=== PATIENT | female | born 1970 | race Caucasian/White ===

== ENCOUNTER 2018-07-13 14:14 | Emergency (ER) | payer MEDICAID ==
[~2018-07-13] VITALS: Ht 165.1 cm; Wt 76.3 kg
[2018-07-13 15:05] LABS: MEAN CORPUSCULAR HEMOGLOBIN 20.2 pg (27.0-34.8); MEAN CORPUSCULAR HGB CONC 31.7 g/dL (32.4-35.8); MEAN CORPUSCULAR VOLUME 63.7 fL (80-100); MEAN PLATELET VOLUME 8.1 fL (7.4-10.4); PLATELET COUNT 350 x10^3/uL (130-400); RED BLOOD COUNT 4.39 x10^6/uL (3.82-5.3); RED CELL DISTRIBUTION WIDTH 20.3 % (9.6-15.2)
[2018-07-13 15:08] LABS: ALBUMIN 3.3 g/dL (3.4-5.0); ANION GAP 5 mmol/L (5-15); CALCIUM 8.4 mg/dL (8.5-10.1); CHLORIDE 109 mmol/L (98-107)
[2018-07-13 15:16] LABS: ALANINE AMINOTRANSFERASE 15 U/L (12-78); ALKALINE PHOSPHATASE 49 U/L (45-117); BILIRUBIN,TOTAL 0.3 mg/dL (0.2-1.0); CREATININE 0.74 mg/dL (0.55-1.02); TOTAL PROTEIN 7.2 g/dL (6.4-8.2)
[2018-07-13 15:31] LABS: MD YES
[2018-07-13 15:35] LABS: ANISOCYTOSIS 1+; EOS#(MANUAL) 0.86 x10^3/uL (0.0-0.4); EOS% (MANUAL) 10 % (1-7); HYPOCHROMIA 1+; LYMPH#(MANUAL) 1.89 x10^3/uL (1-3.4); LYMPHS% (MANUAL) 22 % (22-44); MICROCYTOSIS 1+; MONOS#(MANUAL) 0.52 x10^3/uL (0.3-2.7); MONOS% (MANUAL) 6 % (2-9); REACTIVE LYMPHS # (MANUAL) 0.09 x10^3/uL (0-0); REACTIVE LYMPHS % (MANUAL) 1 % (0-0); SEG#(MANUAL) 5.25 x10^3/uL (1.8-6.8); SEGS% (MANUAL) 61 % (42-75)
[2018-07-13 15:36] LABS: <PLATELET ESTIMATE> ADEQUATE; <PLT MORPHOLOGY> NORMAL PLT MORPH; POLYCHROMASIA 1+; TARGET CELLS 1+
[2018-07-13 15:41] LABS: MICROSCOPIC INDICATED
[2018-07-13 16:09] LABS: CULTURE INDICATED? YES
[2018-07-13 16:11] VITALS: BP 148/69
== END 2018-07-13 16:35 | disposition home or self-care (01) ==
LOC: ED 15:50
DX: D25.9 Leiomyoma of uterus, unspecified (principal); D50.9 Iron deficiency anemia, unspecified; B37.3 Candidiasis of vulva and vagina
CPT/HCPCS: 36415; 76830; 80053; 81001; 84703; 85025; 87086; 87106; 99285

== ENCOUNTER 2020-01-23 19:30 | Emergency (ER) | payer BC, MEDICAID, OTHER ==
[~2020-01-23] VITALS: Ht 165.1 cm; Wt 80.4 kg
--- NOTE | 2020-01-23 20:11 | NUR ---
Rn to bedside, patient complaining of abdominal pain that feels sharp around right flank. RN educated and encouraged patient to provide urine sample. RN reviewed clean catch urine instructions. Patient verbalized understanding and ambulated to bathroom. Patient returned and RN provided patient with warm blanket and completed assessment. Midlevel provider at bedside now, completing assessment. Awaiting for orders.
[2020-01-23] MEDS ORDERED: KETOROLAC 30 MG/1 ML IVPush ONE (20:30)
[2020-01-23] MEDS ORDERED: ONDANSETRON 2MG/ML, 2ML IVPush ONE (20:30)
[2020-01-23 20:32] LABS: HCG UR SG 1.026 (1.003-1.030); MICROSCOPIC AUTO
[2020-01-23 20:33] LABS: CULTURE INDICATED? YES
[2020-01-23 20:48] LABS: BASOPHILS # (AUTO) 0.06 x10^3/uL (0-0.1); BASOPHILS % (AUTO) 1 % (0-1); EOSINOPHILS # (AUTO) 1.39 x10^3/uL (0-0.4); EOSINOPHILS % (AUTO) 15 % (1-7); LYMPHOCYTES # (AUTO) 2.08 x10^3/uL (1-3.4); LYMPHOCYTES % (AUTO) 22 % (22-44); MD NO; MEAN CORPUSCULAR HGB CONC 33.6 g/dL (32.4-35.8); MEAN CORPUSCULAR VOLUME 86.4 fL (80-100); MEAN PLATELET VOLUME 8.6 fL (7.4-10.4); MONOCYTES # (AUTO) 0.62 x10^3/uL (0.2-0.8); MONOCYTES % (AUTO) 7 % (2-9); NEUTROPHILS % (AUTO) 56 % (42-75); PLATELET COUNT 308 x10^3/uL (130-400); RED BLOOD COUNT 4.99 x10^6/uL (3.82-5.3); RED CELL DISTRIBUTION WIDTH 14.1 % (9.6-15.2)
[2020-01-23 20:55] LABS: ANION GAP 7 mmol/L (5-15); CALCIUM 8.7 mg/dL (8.5-10.1); CHLORIDE 108 mmol/L (98-107); CREATININE 0.76 mg/dL (0.55-1.02)
[2020-01-23 20:56] LABS: ALANINE AMINOTRANSFERASE 15 U/L (12-78); ALBUMIN 3.4 g/dL (3.4-5.0)
[2020-01-23] MEDS ORDERED: CEFTRIAXONE PMX 1GM/50ML 50 ML IV ONE (21:00)
[2020-01-23 21:01] LABS: ALKALINE PHOSPHATASE 54 U/L (45-117); BILIRUBIN,TOTAL 0.3 mg/dL (0.2-1.0); TOTAL PROTEIN 7.2 g/dL (6.4-8.2); TROPONIN I < 0.015 ng/mL (0.000-0.045)
[2020-01-23] MEDS ORDERED: CEFTRIAXONE PMX 1GM/50ML 50 ML ONE (21:38)
[2020-01-23] MEDS ORDERED: ONDANSETRON 2MG/ML, 2ML ONE (21:39)
[2020-01-23] MEDS ORDERED: KETOROLAC 30 MG/1 ML ONE (21:39)
[2020-01-23 21:54] VITALS: BP 168/98
== END 2020-01-23 22:40 | disposition home or self-care (01) ==
LOC: ED 22:03
DX: N10 Acute pyelonephritis (principal); R11.2 Nausea with vomiting, unspecified; R10.10 Upper abdominal pain, unspecified; F17.210 Nicotine dependence, cigarettes, uncomplicated; I10 Essential (primary) hypertension; R94.31 Abnormal electrocardiogram [ECG] [EKG]
CPT/HCPCS: 36415; 76700; 80053; 81001; 81025; 83690; 84484; 85025; 87086; 93005; 96365; 96375; 99285; J0696; J1885; J2405; 87077; 87186

== ENCOUNTER 2020-02-02 09:05 | Emergency (ER) | payer BC ==
[~2020-02-02] VITALS: Ht 165.1 cm; Wt 79.0 kg
[2020-02-02 09:53] LABS: BASOPHILS # (AUTO) 0.03 x10^3/uL (0-0.1); BASOPHILS % (AUTO) 0 % (0-1); EOSINOPHILS # (AUTO) 1.52 x10^3/uL (0-0.4); EOSINOPHILS % (AUTO) 15 % (1-7); LYMPHOCYTES # (AUTO) 1.09 x10^3/uL (1-3.4); LYMPHOCYTES % (AUTO) 11 % (22-44); MD NO; MEAN CORPUSCULAR HEMOGLOBIN 29.3 pg (27.0-34.8); MEAN CORPUSCULAR HGB CONC 33.5 g/dL (32.4-35.8); MEAN CORPUSCULAR VOLUME 87.6 fL (80-100); MEAN PLATELET VOLUME 8.4 fL (7.4-10.4); MONOCYTES # (AUTO) 0.63 x10^3/uL (0.2-0.8); MONOCYTES % (AUTO) 6 % (2-9); NEUTROPHILS # (AUTO) 6.81 x10^3/uL (1.8-6.8); NEUTROPHILS % (AUTO) 68 % (42-75); PLATELET COUNT 293 x10^3/uL (130-400); RED CELL DISTRIBUTION WIDTH 14.3 % (9.6-15.2)
[2020-02-02 10:05] LABS: ALBUMIN 3.4 g/dL (3.4-5.0); ANION GAP 5 mmol/L (5-15); CALCIUM 8.3 mg/dL (8.5-10.1); CHLORIDE 109 mmol/L (98-107); CREATININE 0.87 mg/dL (0.55-1.02)
--- NOTE | 2020-02-02 10:10 | NUR ---
CHIEF CONCIERGE: PT TO ROOM FROM LOBBY
[2020-02-02 10:27] LABS: MICROSCOPIC NOT IND
[2020-02-02] MEDS ORDERED: FERR324T5 PO (10:29)
[2020-02-02] MEDS ORDERED: LISI5TAB7 PO (10:30)
[2020-02-02] MEDS ORDERED: CEFD300C37 PO (10:30)
--- NOTE | 2020-02-02 10:30 | NUR ---
PT SITTING IN BED, RESPIRATIONS EVEN AND UNLABORED, NO SIGNS OF DISTRESS, CALL LIGHT WITHIN REACH. FIANCE AT BEDSIDE.
[2020-02-02 10:33] LABS: CULTURE INDICATED? NO
[2020-02-02] MEDS ORDERED: ONDANSETRON 2MG/ML, 2ML IVPush ONE (11:30)
[2020-02-02] MEDS ORDERED: METHOCARBAMOL 750 MG TABLET PO ONE (11:30)
[2020-02-02] MEDS ORDERED: KETOROLAC 30 MG/1 ML IVPush ONE (11:30)
--- NOTE | 2020-02-02 11:30 | NUR ---
PT LAYING IN BED, EYES CLOSED, RESPIRATIONS EVEN AND UNLABORED, LIGHTS OFF TO PROMOTE REST. WILL CONTINUE TO MONITOR
[2020-02-02] MEDS ORDERED: KETOROLAC 30 MG/1 ML ONE (12:06)
[2020-02-02] MEDS ORDERED: ONDANSETRON 2MG/ML, 2ML ONE (12:07)
[2020-02-02] MEDS ORDERED: METHOCARBAMOL 500 MG TABLET ONE (12:07)
--- NOTE | 2020-02-02 12:46 | NUR ---
PT MEDICATED TO MAR, TOLERATED WELL. SITTING IN BED, BEDRAILS UP, CALL LIGHT WITHIN REACH. WILL CONTINUE TO MONITOR.
[2020-02-02 13:29] VITALS: BP 167/98
== END 2020-02-02 13:31 | disposition home or self-care (01) ==
LOC: ED 11:46
DX: M54.5 Low back pain (principal); R10.31 Right lower quadrant pain; R11.0 Nausea; I10 Essential (primary) hypertension; F17.200 Nicotine dependence, unspecified, uncomplicated
CPT/HCPCS: 36415; 74176; 80048; 81003; 82040; 85025; 96374; 96375; 99284; J1885; J2405